=== PATIENT | female | born 1985 | race Caucasian/White ===

== ENCOUNTER 2024-02-14 12:59 | Emergency (ER) | payer OTHER ==
[2024-02-14 13:26] VITALS: BP 131/68; PULSE 102; RESP 17; TEMP 97.8; BMI 29.0
[2024-02-14 14:13] LABS: ALBUMIN 3.9 g/dl (3.4-5.0); CALCIUM 9.1 mg/dL (8.5-10.1)
[2024-02-14 14:14] LABS: POTASSIUM 5.1 mmol/L (3.5-5.1)
[2024-02-14 14:16] LABS: CREATININE 0.8 mg/dL (0.55-1.3)
[2024-02-14 14:18] LABS: BILIRUBIN,TOTAL 1.1 mg/dL (0.2-1); TOT PROT 7.5 g/dl (6.4-8.2)
[2024-02-14 14:36] LABS: URINE APPEARANCE CLEAR; URINE BILIRUBIN NEGATIVE (NEGATIVE); URINE COLOR YELLOW; URINE GLUCOSE (UA) 2+ (NEGATIVE); URINE KETONE 3+ (NEGATIVE); URINE LEUK ESTERASE NEGATIVE (NEGATIVE); URINE NITRITE NEGATIVE (NEGATIVE); URINE PROTEIN NEGATIVE (NEGATIVE); URINE UROBILINOGEN 0.2 mg/dL (0.2-1.0)
[2024-02-14] MEDS: LACTATED RINGERS SOLUTION 1000 ML INFUS.BAG IV ONE (14:42)
[2024-02-14] MEDS: ONDANSETRON 4 MG/2 ML VIAL IVPUSH ONE (15:45)
[2024-02-14] MEDS ORDERED: ONDANSETRON 4 MG/2 ML VIAL ONE (15:48)
[2024-02-14] MEDS: SODIUM CHLORIDE 1,000 ML IV STA (16:15)
[2024-02-14 17:26] LABS: POTASSIUM 4.5 mmol/L (3.5-5.1)
[2024-02-14 17:28] LABS: CALCIUM 8.5 mg/dL (8.5-10.1)
[2024-02-14 17:29] LABS: ALBUMIN 3.1 g/dl (3.4-5.0); BLOOD UREA NITROGEN 13.7 mg/dL (7-18)
[2024-02-14 17:32] LABS: CREATININE 0.6 mg/dL (0.55-1.3)
[2024-02-14 17:34] LABS: BILIRUBIN,TOTAL 0.7 mg/dL (0.2-1); TOT PROT 6.2 g/dl (6.4-8.2)
== END 2024-02-14 17:40 | disposition home or self-care (01) ==
LOC: JER 12:59
PROC: 3E033GC Introduction of Other Therapeutic Substance into Peripheral Vein, Percutaneous Approach (ICD-10-PCS; principal; 2024-02-14)
PROC: 3E0337Z Introduction of Electrolytic and Water Balance Substance into Peripheral Vein, Percutaneous Approach (ICD-10-PCS; 2024-02-14)
DX: E10.65 Type 1 diabetes mellitus with hyperglycemia (principal); R11.2 Nausea with vomiting, unspecified; T85.624A Displacement of insulin pump, initial encounter
CPT/HCPCS: 36415; 80053; 81003; 82010; 82962; 84484; 87086; 99284-25

== ENCOUNTER 2024-08-10 09:19 | Emergency (ER) | payer OTHER ==
[2024-08-10 09:27] VITALS: BP 136/87; PULSE 75; RESP 18; TEMP 98.3; BMI 28.2
[2024-08-10] MEDS ORDERED: ALBUTEROL SO4 2.5/IPRATROPIUM 0.5 INH SOL 3 ML VIAL.NEB. NEB ONE (10:01)
[2024-08-10] MEDS: ALBUTEROL SO4 2.5/IPRATROPIUM 0.5 INH SOL 3 ML VIAL.NEB. NEB ONE (10:05)
[2024-08-10 11:28] LABS: THROAT:GRP A STREP NOT DETECTED (NOTDETECTED)
== END 2024-08-10 12:10 | disposition home or self-care (01) ==
LOC: JERFT 09:19
PROC: 3E0F7GC Introduction of Other Therapeutic Substance into Respiratory Tract, Via Natural or Artificial Opening (ICD-10-PCS; principal; 2024-08-10)
DX: J45.901 Unspecified asthma with (acute) exacerbation (principal); R05.9 Cough, unspecified; R09.81 Nasal congestion; J22 Unspecified acute lower respiratory infection; Z20.822 Contact with and (suspected) exposure to COVID-19
CPT/HCPCS: 0241U-QW; 87651; 99283-25

== ENCOUNTER 2024-08-13 11:53 | Emergency (ER) | payer OTHER ==
[2024-08-13 12:08] VITALS: BP 150/73; PULSE 82; RESP 18; TEMP 98.5; BMI 28.2
[2024-08-13] MEDS ORDERED: ALBUTEROL SO4 2.5/IPRATROPIUM 0.5 INH SOL 3 ML VIAL.NEB. NEB ONE (12:27)
[2024-08-13] MEDS: ALBUTEROL SO4 2.5/IPRATROPIUM 0.5 INH SOL 3 ML VIAL.NEB. NEB ONE (12:30)
== END 2024-08-13 13:03 | disposition home or self-care (01) ==
LOC: JERFT 11:53
PROC: 3E0F7GC Introduction of Other Therapeutic Substance into Respiratory Tract, Via Natural or Artificial Opening (ICD-10-PCS; principal; 2024-08-13)
DX: J45.31 Mild persistent asthma with (acute) exacerbation (principal); R05.9 Cough, unspecified
CPT/HCPCS: 99283-25

== ENCOUNTER 2024-12-14 17:50 | Inpatient (IN) | payer OTHER ==
[2024-12-14] MEDS ORDERED: ACETAMINOPHEN INJECTION 100 ML ONE (19:45)
[2024-12-14] MEDS ORDERED: ONDANSETRON 4 MG/2 ML VIAL ONE (19:45)
[2024-12-14 19:46] LABS: VENOUS O2 SATURATION 31.8 % (70-80); VENOUS PCO2 45.8 mmHg (38-52)
[2024-12-14] MEDS ORDERED: FAMOTIDINE 20 MG/50 ML IVPB 20 MG/50 ML MG IVPB ONE (19:46)
[2024-12-14 19:47] LABS: VENOUS PH 7.185 (7.310-7.410)
[2024-12-14 19:51] LABS: BASO % 0.4 % (0-2.0); EOS % 0.1 % (0-4.5); HEMOGLOBIN 12.6 GM/dL (10.7-15.3); LYMPH % 6.7 % (8-40); MCH 28.2 pg (25.7-33.7); MCHC 31.4 g/dl (32.0-36.0); MEAN CELL VOLUME 89.7 fl (80-96); MEAN PLT VOLUME 8.4 fl (7.5-11.1); MONO % 5.6 % (3.8-10.2); NEUT % 87.2 % (42.8-82.8); PLATELET COUNT 346 10^3/uL (134-434); RBC 4.46 M/mm3 (3.60-5.2); RDW 16.6 % (11.6-15.6); WHITE BLOOD COUNT 8.4 K/mm3 (4.0-10.0)
[2024-12-14] MEDS: ACETAMINOPHEN 1000 MG/100 ML BAG IVPB ONE (19:54)
[2024-12-14] MEDS: SODIUM CHLORIDE 0.9% 500 ML INFUS.BAG IV ONE (19:54)
[2024-12-14] MEDS: FAMOTIDINE 20 MG/50 ML IVPB 20 MG/50 ML MG IVPB ONE (19:54)
[2024-12-14] MEDS: ONDANSETRON 4 MG/2 ML VIAL IVPB ONE (19:55)
[2024-12-14 20:10] LABS: CHLORIDE 95 mmol/L (98-107); POTASSIUM 5.1 mmol/L (3.5-5.1); SODIUM 129 mmol/L (136-145)
[2024-12-14 20:12] LABS: BLOOD UREA NITROGEN 26.3 mg/dL (7-18)
[2024-12-14 20:13] LABS: ALBUMIN 3.6 g/dl (3.4-5.0); ANION GAP 19 mmol/L (4-13); CO2 15 mmol/L (21-32)
[2024-12-14 20:14] LABS: GLUCOSE,RANDOM 459 mg/dL (74-106)
[2024-12-14 20:15] LABS: SGPT/ALT 60 U/L (13-61)
[2024-12-14 20:16] LABS: SGOT/AST 114 U/L (15-37)
[2024-12-14 20:17] LABS: BILIRUBIN,TOTAL 0.7 mg/dL (0.2-1); TOT PROT 7.6 g/dl (6.4-8.2)
[2024-12-14 20:18] LABS: ALK PHOS 227 U/L (45-117)
[2024-12-14] MEDS ORDERED: POTASSIUM CHLORIDE 10 MEQ in SODIUM CHLORIDE 1,000 ML IVPB ONE (20:25)
[2024-12-14] MEDS ORDERED: VANCOMYCIN 1 GM PREMIX (F) 1 GM/200 ML BAG ONE (20:29)
[2024-12-14] MEDS ORDERED: INSULIN REGULAR HUMAN 100 UNITS/ML *VIAL* (FOR IVP) IVPUSH ONE (21:45)
[2024-12-14] MEDS ORDERED: SODIUM CHLORIDE 1,000 ML IV SCH (21:45)
[2024-12-14] MEDS ORDERED: ALBUTEROL SO4 HFA INHALER IH PRN (21:54)
[2024-12-14] MEDS: INSULIN REGULAR 100 UNITS in SODIUM CHLORIDE 99 ML IVPB SCH ×2 (21:56→22:30)
[2024-12-14] MEDS ORDERED: ONDANSETRON 4 MG/2 ML VIAL IVPUSH PRN (22:00)
[2024-12-14] MEDS: DEXTROSE 5%-NORMAL SALINE 1,000 ML IV SCH (23:01)
[2024-12-14] MEDS: CHLORHEXIDINE GLUCONATE 4% CLEANSER FOR DECOLONIZATION TP SCH (23:02)
[2024-12-14] MEDS: MUPIROCIN 2% TOPICAL OINTMENT FOR DECOLONIZATION NS SCH (23:02)
[2024-12-14] MEDS: ENOXAPARIN NA (PORCINE) 40 MG/0.4 ML DISP.SYRIN SQ SCH (23:07)
[2024-12-14] MEDS: ALPRAZolam 0.25 MG TABLET PO PRN (23:17)
[2024-12-14 23:33] LABS: URINE APPEARANCE CLEAR; URINE BILIRUBIN NEGATIVE (NEGATIVE); URINE COLOR YELLOW; URINE GLUCOSE (UA) TRACE (NEGATIVE); URINE KETONE 1+ (NEGATIVE); URINE LEUK ESTERASE NEGATIVE (NEGATIVE); URINE NITRITE NEGATIVE (NEGATIVE); URINE PROTEIN NEGATIVE (NEGATIVE); URINE UROBILINOGEN 0.2 mg/dL (0.2-1.0)
[2024-12-14 23:51] LABS: CALCIUM 8.6 mg/dL (8.5-10.1)
[2024-12-14 23:56] LABS: CREATININE 0.9 mg/dL (0.55-1.3)
[2024-12-15 00:01] LABS: POTASSIUM 4.6 mmol/L (3.5-5.1)
[2024-12-15 00:02] LABS: BLOOD UREA NITROGEN 23.9 mg/dL (7-18)
[2024-12-15] MEDS: DEXTROSE 10%-WATER - 1,000 ML IV SCH ×2 (00:33→06:44)
[2024-12-15] MEDS ORDERED: ALPRAZolam 0.25 MG TABLET PO PRN (06:41)
[2024-12-15] MEDS: PREGABALIN 100 MG CAPSULE PO SCH (06:45)
[2024-12-15] MEDS ORDERED: INSULIN ASPART SLIDING SCALE (NOVOLOG) 1 VIAL SQ SCH (07:00)
[2024-12-15] MEDS ORDERED: INSULIN (LEVEMIR) 100 UNITS/ML UNITS SQ SCH ×3 (07:00→09:00)
[2024-12-15 07:09] LABS: BASO % 0.8 % (0-2.0); EOS % 1.3 % (0-4.5); HEMATOCRIT 33.3 % (32.4-45.2); HEMOGLOBIN 10.7 GM/dL (10.7-15.3); LYMPH % 32.4 % (8-40); MCH 28.1 pg (25.7-33.7); MEAN CELL VOLUME 87.8 fl (80-96); MEAN PLT VOLUME 8.5 fl (7.5-11.1); MONO % 9.5 % (3.8-10.2); PLATELET COUNT 288 10^3/uL (134-434); RDW 16.6 % (11.6-15.6); WHITE BLOOD COUNT 5.9 K/mm3 (4.0-10.0)
[2024-12-15 07:20] LABS: POTASSIUM 4.1 mmol/L (3.5-5.1)
[2024-12-15 07:25] LABS: CALCIUM 8.1 mg/dL (8.5-10.1)
[2024-12-15 07:26] LABS: BLOOD UREA NITROGEN 15.7 mg/dL (7-18); MAGNESIUM 1.8 mg/dL (1.8-2.4)
[2024-12-15 07:29] LABS: CREATININE 0.6 mg/dL (0.55-1.3); PHOSPHOROUS 2.9 mg/dL (2.5-4.9)
[2024-12-15 07:31] LABS: BILIRUBIN,TOTAL 1.1 mg/dL (0.2-1); TOT PROT 5.7 g/dl (6.4-8.2)
[2024-12-15 07:37] LABS: ALBUMIN 2.7 g/dl (3.4-5.0)
[2024-12-15] MEDS ORDERED: propRANOLol HCL 10 MG TABLET PO SCH (08:00)
[2024-12-15] MEDS: INSULIN (LEVEMIR) 100 UNITS/ML UNITS SQ SCH (08:47)
[2024-12-15] MEDS: INSULIN ASPART SLIDING SCALE (NOVOLOG) 1 VIAL SQ SCH (09:22)
[2024-12-15] MEDS: ALPRAZolam 0.25 MG TABLET PO SCH (09:29)
[2024-12-15] MEDS: FLUTICASONE/SALMETEROL (WIXELA) 100 MCG/50 MCG DISKUS IH SCH (10:28)
[2024-12-15] MEDS: NICOTINE 14 MG/24 HOURS TOPICAL PATCH TD SCH (10:30)
[2024-12-15] MEDS: MONTELUKAST NA 10 MG TABLET PO SCH (21:07)
[2024-12-15] MEDS: ACETAMINOPHEN 1000 MG/100 ML BAG IVPB PRN (21:25)
[2024-12-16 01:36] VITALS: RESP 18
[2024-12-16] MEDS: INSULIN REGULAR HUMAN 100 UNITS/ML *VIAL IVPUSH ONE (05:15)
[2024-12-16] MEDS: ACETAMINOPHEN 1000 MG/100 ML BAG IVPB ONE (05:42)
[2024-12-16] MEDS ORDERED: INSULIN (LEVEMIR) 100 UNITS/ML UNITS SQ SCH (07:00)
[2024-12-16] MEDS: INSULIN PUMP - PATIENTS OWN MED NR SCH (07:13)
[2024-12-16 08:10] LABS: BASO % 0.8 % (0-2.0); EOS % 1.3 % (0-4.5); HEMATOCRIT 37.5 % (32.4-45.2); HEMOGLOBIN 12.2 GM/dL (10.7-15.3); LYMPH % 29.8 % (8-40); MCH 28.8 pg (25.7-33.7); MCHC 32.6 g/dl (32.0-36.0); MEAN CELL VOLUME 88.2 fl (80-96); MEAN PLT VOLUME 8.7 fl (7.5-11.1); MONO % 8.2 % (3.8-10.2); NEUT % 59.9 % (42.8-82.8); PLATELET COUNT 276 10^3/uL (134-434); RBC 4.25 M/mm3 (3.60-5.2); WHITE BLOOD COUNT 4.1 K/mm3 (4.0-10.0)
[2024-12-16 08:29] LABS: POTASSIUM 3.9 mmol/L (3.5-5.1)
[2024-12-16 08:44] LABS: BILIRUBIN,TOTAL 0.4 mg/dL (0.2-1)
[2024-12-16 08:45] LABS: CREATININE 0.8 mg/dL (0.55-1.3)
[2024-12-16 08:46] LABS: PHOSPHOROUS 2.2 mg/dL (2.5-4.9)
[2024-12-16 08:47] LABS: CALCIUM 8.5 mg/dL (8.5-10.1); TOT PROT 6.3 g/dl (6.4-8.2)
[2024-12-16 08:48] LABS: ALBUMIN 2.9 g/dl (3.4-5.0); BLOOD UREA NITROGEN 11.2 mg/dL (7-18); MAGNESIUM 1.8 mg/dL (1.8-2.4)
[2024-12-16 12:30] VITALS: BP 123/74; PULSE 81; TEMP 98
[2024-12-16] MEDS ORDERED: FLU VACCINE (FLULAVAL) PF 45 MCG/0.5 ML SYRINGE 2024-2025 IM ONE (13:00)
[2024-12-16 13:04] VITALS: BMI 29.3
[2024-12-16] MEDS ORDERED: PNEUMOCOCCAL 23 VACCINE 0.5 ML VIAL IM ONE (13:50)
[2024-12-16] MEDS: NAPH,MB-DB/K PH,MBDB POWDER PACKET PO SCH (14:21)
[2024-12-16] MEDS: FLU VACCINE (FLULAVAL) PF 45 MCG/0.5 ML SYRINGE 2024-2025 IM ONE (14:39)
[2024-12-16] MEDS: PNEUMOC 20-VAL CONJ-DIP CRM/PF 0.5 ML SYRINGE IM ONE (15:23)
== END 2024-12-16 16:47 | disposition home or self-care (01) | DRG 919 ==
LOC: JER 17:50 → JERBED 20:49 → JICU 22:30
PROVIDERS: ADMIT Internal Medicine Pulmonary Disease; ATTEND Internal Medicine Pulmonary Disease
DX: T85.694A Other mechanical complication of insulin pump, initial encounter (principal); E10.10 Type 1 diabetes mellitus with ketoacidosis without coma; J45.909 Unspecified asthma, uncomplicated; Z98.84 Bariatric surgery status; F41.9 Anxiety disorder, unspecified; F17.210 Nicotine dependence, cigarettes, uncomplicated; Y84.8 Other medical procedures as the cause of abnormal reaction of the patient, or of later complication, without mention of misadventure at the time of the procedure
CPT/HCPCS: 0241U-QW; 36415; 71046-TC-FY; 80048; 80053; 81003; 82010; 82803; 82962; 82977; 83036; 83690; 83735; 83930; 84100; 84484; 84703; 85025; 90656; 90677; 93005; 93010; 99285-25; G0008; G0009; J0131